=== PATIENT | male | born 1975 | race Caucasian/White ===

== ENCOUNTER → 2020-07-07 15:49 | Outpatient (CLI) | payer OTHER, SELFPAY ==
[2020-07-07 17:57] LABS: COVID19 -Nasal RAPID Negative (Negative)
== END ==
PROVIDERS: Family Provider Family Medicine; Visit Provider Physician Assistant
DX: Z03.818 Encounter for observation for suspected exposure to other biological agents ruled out (principal)
CPT/HCPCS: 87635

== ENCOUNTER 2022-12-07 23:46 | Emergency (ER) | payer OTHER, SELFPAY ==
[2022-12-07 23:54] VITALS: BP 129/81; PULSE 75; RESP 14; TEMP 37.1; O2SAT 99; BMI 25.0
--- NOTE | 2022-12-08 00:22 | ED.LOWEXIN ---
HPI - Extremity Injury (Lower) General Chief Complaint: Extremity Injury, Lower Stated Complaint: left calf injury Time Seen by Provider: 12/08/22 00:08 Source: patient Mode of arrival: Ambulatory History of Present Illness HPI Narrative: Patient is a 47-year-old male. 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 He was moving some hoses around where he states that he felt a pop to his left calf muscle. He was able to walk however was having quite a bit of discomfort specifically with lifting his foot up and also touching his calf muscle. Reports no other injuries from the event. Has not tried anything for the symptoms prior to arrival. Related Data Home Medications Medication Instructions Recorded Confirmed No Known Home Medications 01/15/19 11/09/21 Allergies Allergy/AdvReac Type Severity Reaction Status Date / Time No Known Drug Allergies Allergy Verified 01/15/19 08:45 Review of Systems Musculoskeletal Musculoskeletal: Reports system reviewed and no additional complaints, except as documented Integumentary/Breasts Skin/Breast: Reports system reviewed and no additional complaints, except as documented Neurologic Neurologic: Reports system reviewed and no additional complaints, except as documented Patient History Medical History Chicken pox (~1986) Surgical History (Updated 05/21/19 @ 19:57 by Una Anton) Anesthesia History of ear surgery (~1984) Family History (Updated 05/21/19 @ 20:06 by Una Anton) Father Bladder cancer Mother Uterine cancer Diabetes mellitus Hyperlipidemia Sjogren's disease Brother Down syndrome Grandmother History of heart disease Grandfather Pneumonia Grandfather Cancer Social History marital status: number of children: 3 household members: family lives independently: Yes occupational status: employed Smoking Status: Never smoker alcohol intake: current (1-3 drinks per week) substance use type: does not use Smoking Status: Never smoker Exam Initial Vital Signs Initial Vital Signs: Vital Signs Temperature 98.7 F 12/07/22 23:54 Pulse Rate 75 12/07/22 23:54 Respiratory Rate 14 12/07/22 23:54 Blood Pressure 129/81 12/07/22 23:54 Pulse Oximetry 99 12/07/22 23:54 Oxygen Delivery Method Room Air 12/07/22 23:54 Const General: cooperative and comfortable Skin General: no rashes or lesions noted Neuro Sensory Exam: no sensory deficits noted Extrem Other: Patient is able to do a straight leg raise. He is no tenderness to palpation both medial and lateral hamstring on the left. His Achilles tendon in his intact. He is able to flex and extend it is ankle. The gastrocnemius appears to be intact. There is no bulging of the muscle. There is no effusion of the left knee. Course Vital Signs Vital signs: Vital Signs - 8 hr 12/07/22 23:54 Temperature 98.7 F Pulse Rate 75 Respiratory Rate 14 Blood Pressure 129/81 Pulse Oximetry 99 Oxygen Delivery Method Room Air MDM - Extremity Injury (Lower) MDM Narrative Medical decision making narrative: He does discomfort along the proximal/medial aspect of the left gastrocnemius muscle. The muscle does appear to be intact. His Achilles tendon is intact. He could potentially still have a partial tear of the muscle given his location were could also just be a strain. I did discuss this with him. He does have next week off from work. I recommended that he continue to walk like normal but to avoid activities where he quickly starts and stops and running and jumping. He can use ice. He may benefit from a follow-up with Orthopedics given his job. He was given return precautions. He expressed understanding and agreement. Discharge Plan Departure Patient Disposition: Home Clinical Impression: Strain of left calf muscle Instructions: DI for Calf Muscle Strain, How To Perform RICE (Rest, Ice, Compress, Elevate) Activity Restrictions/Additional Instructions: Like we discussed you potentially could have just a strain of the calf muscle versus a partial tear. I do recommend that you follow-up with a orthopedic provider like we discussed. You can take Tylenol/ibuprofen and also ice the area. You can walk like normal. Return to the emergency department for new symptoms Prescriptions: No Action No Known Home Medications Referrals: Brody,MD Alvin [Primary Care Provider] - Stand Alone Forms: Patient Portal/API
== END 2022-12-08 00:31 | disposition home or self-care (01) ==
PROVIDERS: Emergency Provider Emergency Medicine; Family Provider Family Medicine
DX: S86.912A Strain of unspecified muscle(s) and tendon(s) at lower leg level, left leg, initial encounter (principal); X50.1XXA Overexertion from prolonged static or awkward postures, initial encounter; Y99.0 Civilian activity done for income or pay
CPT/HCPCS: 99281

== ENCOUNTER 2023-08-19 12:19 | Emergency (ER) | payer OTHER, SELFPAY ==
[2023-08-19 12:38] VITALS: BP 133/84; PULSE 74; RESP 18; TEMP 36.8; O2SAT 100; BMI 25.0
--- NOTE | 2023-08-19 16:35 | ED.BACK ---
HPI - Back Pain/Injury General Chief Complaint: Back Pain/Injury Stated Complaint: LOW BACK AND LT LEG PAIN/NUMBNESS Time Seen by Provider: 08/19/23 16:34 Source: patient Related Data Home Medications Medication Instructions Recorded Confirmed No Known Home Medications 01/15/19 11/09/21 Allergies Allergy/AdvReac Type Severity Reaction Status Date / Time No Known Drug Allergies Allergy Verified 01/15/19 08:45 Patient History Medical History Chicken pox (~1986) Surgical History (Updated 05/21/19 @ 19:57 by Una Anton) Anesthesia History of ear surgery (~1984) Family History (Updated 05/21/19 @ 20:06 by Una Anton) Father Bladder cancer Mother Uterine cancer Diabetes mellitus Hyperlipidemia Sjogren's disease Brother Down syndrome Grandmother History of heart disease Grandfather Pneumonia Grandfather Cancer Social History marital status: number of children: 3 household members: family lives independently: Yes occupational status: employed Smoking Status: Never smoker alcohol intake: current (1-3 drinks per week) substance use type: does not use Smoking Status: Never smoker alcohol intake frequency: holidays/special occasions only Substance Use Type: does not use Exam Initial Vital Signs Initial Vital Signs: Vital Signs Temperature 98.2 F 08/19/23 12:38 Pulse Rate 74 08/19/23 12:38 Respiratory Rate 18 08/19/23 12:38 Blood Pressure 133/84 08/19/23 12:38 Pulse Oximetry 100 08/19/23 12:38 Oxygen Delivery Method Room Air 08/19/23 12:38 Course Vital Signs Vital signs: Vital Signs - 8 hr 08/19/23 12:38 Temperature 98.2 F Pulse Rate 74 Respiratory Rate 18 Blood Pressure 133/84 Pulse Oximetry 100 Oxygen Delivery Method Room Air Discharge Plan Departure Prescriptions: No Action No Known Home Medications Referrals: Brody,DoctorMD [Primary Care Provider] -
--- NOTE | 2023-08-19 18:43 | ED.BACK ---
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 He is not had any problems with bowel or bladder control or ability to urinate he is not had any fevers he is not immunosuppressed does not use injection drugs and there was no traumatic injury associated. He says he has a next several days off, he is able to tolerate NSAIDs. Related Data Previous Rx's Medication Instructions Recorded methylprednisolone 4 mg tablets in See Rx Instructions PO .COMPLEX 08/19/23 a dose pack (Medrol (Ambrocio)) #21 ea Allergies Allergy/AdvReac Type Severity Reaction Status Date / Time No Known Drug Allergies Allergy Verified 01/15/19 08:45 Patient History Medical History Chicken pox (~1986) Surgical History (Updated 05/21/19 @ 19:57 by Una Anton) Anesthesia History of ear surgery (~1984) Family History (Updated 05/21/19 @ 20:06 by Una Anton) Father Bladder cancer Mother Uterine cancer Diabetes mellitus Hyperlipidemia Sjogren's disease Brother Down syndrome Grandmother History of heart disease Grandfather Pneumonia Grandfather Cancer Social History marital status: number of children: 3 household members: family lives independently: Yes occupational status: employed Smoking Status: Never smoker alcohol intake: current (1-3 drinks per week) substance use type: does not use Smoking Status: Never smoker alcohol intake frequency: holidays/special occasions only Substance Use Type: does not use Exam Initial Vital Signs Initial Vital Signs: Vital Signs Temperature 98.2 F 08/19/23 12:38 Pulse Rate 74 08/19/23 12:38 Respiratory Rate 18 08/19/23 12:38 Blood Pressure 133/84 08/19/23 12:38 Pulse Oximetry 100 08/19/23 12:38 Oxygen Delivery Method Room Air 08/19/23 12:38 Const General: healthy appearing and No acute distress HENUT Head: normocephalic and atraumatic Resp Effort & Inspection: normal respiratory effort Cardio Other: Normal heart rate Back/Spine/Pelvis Other: Has some diffuse tenderness in the lumbar spine with some paraspinal spasm on the left. No step-off no focal tenderness Skin General: no rashes or lesions noted Neuro General: patient awake, patient oriented x3, no focal motor deficits and deep tendon reflexes 2+ bilaterally Course Vital Signs Vital signs: Vital Signs - 8 hr 08/19/ 12:38 Temperature 98.2 F Pulse Rate 74 Respiratory Rate 18 Blood Pressure 133/84 Pulse Oximetry 100 Oxygen Delivery Method Room Air MDM - Back Pain/Injury MDM Narrative Medical decision making narrative: 48-year-old male previously healthy with low back pain and sciatica. No red flag features are associated. Recommended follow up with his sports medicine doctor, recommended scheduled NSAIDs with supplemental Tylenol as needed. I provided a paper copy of a prescription for a Medrol Dosepak if NSAIDs are not effective over the next 3-4 days. Indications for return to the emergency department were reviewed. I considered but do not suspect fracture spinal infection or cauda equina Discharge Plan Departure Patient Disposition: Home Clinical Impression: Sciatica Qualifiers: Laterality: left Qualified Code(s): M54.32 - Sciatica, left side Instructions: DI for Back Pain With Sciatica Activity Restrictions/Additional Instructions: Today we saw you for back pain with radiation down Your left leg. I recommend using ibuprofen 600 mg 3 times a day, do this regularly for 4 days. If you are not improving by that time, stop the ibuprofen and begin the prescribed methylprednisolone Dosepak. You can also use acetaminophen ( Tylenol) at usual [id number] dosing frequencies for pain control. Activity should be as tolerated, avoid prolonged sitting heavy lifting bending or twisting. Make an appointment to follow up with a sports medicine doctor as soon as possible regarding this. If you are having inability to urinate fevers or severe pain recheck in the emergency department. Prescriptions: New methylprednisolone [Medrol (Ambrocio)] 4 mg tablets,dose pack See Rx Instructions .ROUTE .COMPLEX Qty: 21 0RF Rx Instructions: orally per package directions Referrals: Miscellaneous,Doctor, MD [Primary Care Provider] - Stand Alone Forms: Patient Portal/API
[2023-08-19 18:55] VITALS: BP 137/81; PULSE 60; RESP 16; O2SAT 98
== END 2023-08-19 18:56 | disposition home or self-care (01) ==
PROVIDERS: Emergency Provider Emergency Medicine; Family Provider Family Medicine
DX: M54.32 Sciatica, left side (principal); X50.0XXA Overexertion from strenuous movement or load, initial encounter
CPT/HCPCS: 99281